=== PATIENT | male | born 1975 | race Hispanic/Latino ===

== ENCOUNTER 2023-09-08 08:55 | Emergency (ER) | payer MEDICARE ==
[~2023-09-08] VITALS: Ht 180.3 cm; Wt 177.8 kg
[2023-09-08 09:52] LABS: BASOPHILS # (AUTO) 0.04 K/uL (0.00-0.20); BASOPHILS % (AUTO) 0.3 % (0.0-5.0); HEMATOCRIT 47.7 % (42-54); IMMATURE GRANULOCYTE ABSOLUTE 0.05 K/uL (0-1); LYMPHOCYTES # (AUTO) 1.3 K/uL (1.0-4.8); LYMPHOCYTES % (AUTO) 11.1 % (21.0-51.0); MEAN CORPUSCULAR HEMOGLOBIN 31.9 pg (27.0-33.0); MEAN CORPUSCULAR HGB CONC 34.4 g/dL (32.0-36.0); MEAN CORPUSCULAR VOLUME 92.8 fL (79-99); MONOCYTES # (AUTO) 0.5 K/uL (0.1-1.0); MONOCYTES % (AUTO) 4.4 % (3.0-13.0); NEUTROPHILS % (AUTO) 83.8 % (40.0-77.0); PLATELET COUNT (AUTO) 229 K/uL (130-400); RED BLOOD CELL COUNT(AUTO) 5.14 MIL/uL (4.50-6.20); RED CELL DISTRIBUTION WIDTH 12.6 % (11.0-15.5); WHITE BLOOD COUNT (AUTO) 11.9 K/uL (4.8-10.8)
[2023-09-08 10:06] LABS: CREATININE 0.7 mg/dL (0.5-1.3); POTASSIUM 3.9 mmol/L (3.5-5.1)
[2023-09-08 10:10] LABS: ALBUMIN 3.6 g/dL (3.5-5.0); BILIRUBIN,TOTAL 0.7 mg/dL (0.2-1.0); TOTAL PROTEIN, SERUM 8.3 g/dL (6.0-8.3)
[2023-09-08] MEDS: ONDANSETRON 4MG INJ IVP ONE (11:33)
[2023-09-08] MEDS: 0.9%NACL 1000ML 1,000 ML IV SCH (11:33)
[2023-09-08] MEDS: KETOROLAC 30MG VIAL (30MG/ML) IVP ONE (11:47)
[2023-09-08 14:20] LABS: APPEARANCE,URINE CLEAR (CLEAR); BILIRUBIN,URINE NEGATIVE (NEGATIVE); COLOR,URINE YELLOW (YELLOW); GLUCOSE, URINE (UA) NEGATIVE (NEGATIVE); KETONES,URINE 20 mg/dL (NEGATIVE); LEUKOCYTE ESTERASE ,URINE NEGATIVE Leu/uL (NEGATIVE); NITRATE,URINE NEGATIVE (NEGATIVE); OCCULT BLOOD,URINE NEGATIVE (NEGATIVE); PH,URINE 5.5 (5.0-8.0); PROTEIN,URINE 50 mg/dL (NEGATIVE); UROBILINOGEN,URINE 0.2 mg/dL (0.2-1.0)
[2023-09-08 14:25] LABS: ADD UA MICROSCOPIC YES
[2023-09-08 14:26] LABS: MUCUS,URINE RARE LPF (None Seen); SQUAMOUS EPITHELIAL CELL,UR RARE /HPF (0-2)
[2023-09-08] MEDS ORDERED: ACET-2893 PO (14:27)
[2023-09-08] MEDS ORDERED: FAMO20TA8 PO (14:27)
[2023-09-08] MEDS ORDERED: ONDA4TAB10 PO (14:27)
[2023-09-08 14:29] VITALS: BP 138/72; PULSE 82; RESP 18; O2SAT 95
[2023-09-08] MEDS: ACETAMINOPHEN 500 MG TABLET PO ONE (14:32)
== END 2023-09-08 14:41 | disposition home or self-care (01) ==
LOC: EDH 08:55
DX: K29.70 Gastritis, unspecified, without bleeding (principal); R11.2 Nausea with vomiting, unspecified; R51.9 Headache, unspecified; E11.9 Type 2 diabetes mellitus without complications; E78.00 Pure hypercholesterolemia, unspecified; I10 Essential (primary) hypertension; Z79.624 Long term (current) use of inhibitors of nucleotide synthesis
CPT/HCPCS: 99285; 70450; 96374; 76705; 96361; 96375; 84484; 80053; 83690; 85025; 83605 ×2; 81001; 36415; 74176; J7030; J2405; J1885

== ENCOUNTER 2023-09-10 08:35 | Emergency (ER) | payer MEDICARE ==
[~2023-09-10] VITALS: Ht 180.3 cm; Wt 177.4 kg
[~2023-09-10 08:35] MED LIST: ACET-2893 PO; FAMO20TA8 PO; ONDA4TAB10 PO
[2023-09-10 08:42] VITALS: BP 154/95; PULSE 61; RESP 20; O2SAT 95
[2023-09-10] MEDS ORDERED: ACYC-138 PO (10:06)
[2023-09-10] MEDS ORDERED: GABA-529 PO (10:06)
== END 2023-09-10 10:22 | disposition home or self-care (01) ==
LOC: EDH 08:35
DX: B02.8 Zoster with other complications (principal); H61.21 Impacted cerumen, right ear; R51.9 Headache, unspecified; I10 Essential (primary) hypertension; E11.9 Type 2 diabetes mellitus without complications; E78.00 Pure hypercholesterolemia, unspecified; Z79.899 Other long term (current) drug therapy; Z98.890 Other specified postprocedural states